=== PATIENT | male | born 1955 | race Caucasian/White ===

== ENCOUNTER 2018-04-19 14:04 | Emergency (ER) | payer BC ==
[2018-04-19 15:11] LABS: Bilirubin Negative (Negative); Blood, Urine Large (Negative); Clarity Cloudy (Clear); Glucose, Urine (Dipstick) Negative (Negative); Leukocyte Negative (Negative); Nitrite Negative (Negative); Protein, Urine (Dipstick) Trace mg/dL (Neg-Trace); Specific Gravity, Urine 1.015 (1.005-1.030); Urobilinogen 0.2 mg/dL (0.2-1.0)
[2018-04-19 15:18] LABS: Bacteria/HPF Rare-Few HPF (None Seen); Crystals/HPF 1+ AMORPH URATES HPF (Negative); RBC/HPF GREATER THAN 50-TNTC HPF (0-3); Squamous Epithelial 0-3 HPF (0-3); WBC/HPF 0-3 HPF (0-3)
[2018-04-19 15:19] LABS: Hyaline Casts/LPF 0-3 HYALINE CAST LPF (0-3 Hyaline); Oval Fat Bodies/HPF Rare HPF (None Seen)
[2018-04-19] MEDS ORDERED: Ondansetron HCl/PF 4 MG/2 ML Vial ONE (15:37)
[2018-04-19] MEDS ORDERED: Ketorolac Tromethamine 30 MG/ML VIAL ONE (15:37)
[2018-04-19 15:52] LABS: Band 2 % (5-11); Hemoglobin 15.7 g/dL (14.0-18.0); Lymphocytes 5 % (21-51); MDiff Complete? YES; Mean Corpuscular HGB CONC 35.7 g/dL (32.0-36.0); Mean Corpuscular Volume 89.7 fl (80.0-94.0); Mean Platelet Volume 8.5 fL (7.4-10.4); Monocytes 6 % (0-10); Neutrophil 81 % (42-75); PLT Morphology Comment Appears Adequate; Platelet Count 282 thou/uL (130-400); RBC Distribution Width 11.5 % (11.5-14.5); Reactive Lymphocytes 5 % (0-10); Red Blood Cell (RBC) Count 4.91 mill/uL (4.70-6.10); White Blood Cell (WBC) Count 14.9 thou/uL (4.8-10.8)
[2018-04-19 15:54] LABS: Anion Gap 16 mmol/L (10-20); BUN (Urea Nitrogen) 16 mg/dL (8.4-25.7); Calc. Creatinine Clearance 0 mL/min (70-130); Calcium 9.2 mg/dL (7.8-10.44); Carbon Dioxide 20 mmol/L (23-31); Chloride 108 mmol/L (98-107); Estimated GFR-MDRD 62; Glucose 102 mg/dL (80-115); Potassium 4.4 mmol/L (3.5-5.1); Sodium 140 mmol/L (136-145)
--- NOTE | 2018-04-19 16:50 | CT ---
ABDOMEN CT WITHOUT CONTRAST: PELVIS CT WITHOUT CONTRAST: HISTORY: Left low back pain. Lower abdominal pain. Difficulty urinating. COMPARISON: None. TECHNIQUE: Abdomen and pelvis CT is performed without IV or oral contrast, utilizing a renal stone protocol. Co deyvi reformatted images are submitted for interpretation. FINDINGS: ABDOMEN: The lung bases are clear. Surgical clips are noted in the GE junction. The visualized davie g parenchyma are unremarkable. The gallbladder is unremarkable. Limited evaluation of the solid organs due to lack of IV contrast. Grossly, no solid organ abnormali ty. Calcified granulomas in the spleen are noted. Mild atrophy of the head and proximal body of the pancreas. No gastrohepatic, retrocrural, or periportal lymphadenopathy. No mesenteric mass, lymphadenopathy, free air, or free fluid. Limited evaluation of the alimentary canal due to lack of oral contrast. No evidence of bowel obstru ction. The ileocecal junction is normal. The appendix is not appreciated. No inflammation of the c ecal apex. Scattered fecal material in a nondistended, nondilated colon. Occasional diverticula. N o diverticulitis. There are punctate nonobstructing calculi in the left and right intrarenal collecting system. The la rgest calculus in the right intrarenal collecting system measures 0.4 cm. The largest calculus in th e left intrarenal collecting system measures 1 to 2 mm. No evidence of right-sided obstructive uropa thy. There is mild left perinephric and periureteral fat stranding. There are no calcifications kranthi ng the course of the left intrarenal and extrarenal collecting system. There is a few millimeter navya culus at the left aspect of the bladder, likely representing a recent passed calculus. PELVIS: Calculus in the left hemibladder. No pelvic mass, adenopathy, free air, or free fluid. No lytic or blastic lesions in the osseous structures. Vacuum disk phenomenon is noted at multiple l evels. IMPRESSION: 1. Mild left-sided obstructive uropathy secondary to recent passed calculus, which is now at the lef t aspect of the bladder. Bilateral nonobstructing urinary calculi are noted. 2. Occasional diverticula of the colon. No diverticulitis. POS: [facility]
== END 2018-04-19 16:05 | disposition home or self-care (01) ==
LOC: SCSER 14:04
DX: N20.0 Calculus of kidney (principal)
CPT/HCPCS: 74176; 80048; 81003; 81015; 85025; 93005; 96374; 96375; J1885; J2405

== ENCOUNTER 2018-06-28 12:59 | Outpatient (CLI) | payer BC ==
[2018-06-28 15:26] LABS: #Basophils 0.2 thou/uL (0.0-0.2); #Eosinphils 0.2 thou/uL (0.0-0.7); #Lymphocytes 4.6 thou/uL (1.20-3.40); #Monocytes 1.1 thou/uL (0.11-0.59); #Neutrophils 4.1 thou/uL (1.40-6.50); %Basophils 1.5 % (0.0-1.0); %Eosinophils 2.3 % (0.0-10.0); %Lymphocytes 45.3 % (21.0-51.0); %Monocytes 10.8 % (0.0-10.0); %Neutrophils 40.1 % (42.0-75.0); Hemoglobin 14.9 g/dL (14.0-18.0); Mean Corpuscular HGB CONC 33.7 g/dL (32.0-36.0); Mean Corpuscular Hemoglobin 31.8 pg (27.0-31.0); Mean Corpuscular Volume 94.4 fL (78.0-98.0); Mean Platelet Volume 7.7 fL (7.4-10.4); Platelet Count 282 thou/uL (130-400); RBC Distribution Width 12.4 % (11.5-14.5); Red Blood Cell (RBC) Count 4.68 mill/uL (4.70-6.10); White Blood Cell (WBC) Count 10.2 thou/uL (4.8-10.8)
[2018-06-28 15:45] LABS: Anion Gap 13 mmol/L (10-20); BUN (Urea Nitrogen) 15 mg/dL (8.4-25.7); Calc. Creatinine Clearance 0 mL/min (70-130); Calcium 9.1 mg/dL (7.8-10.44); Carbon Dioxide 23 mmol/L (23-31); Chloride 107 mmol/L (98-107); Estimated GFR-MDRD 73; Glucose 88 mg/dL (80-115); Potassium 4.1 mmol/L (3.5-5.1); Sodium 139 mmol/L (136-145)
== END 2018-06-28 13:00 | disposition home or self-care (01) ==
LOC: LABBT 12:59
PROVIDERS: ATTEND Urology
DX: Z01.818 Encounter for other preprocedural examination (principal); N20.0 Calculus of kidney
CPT/HCPCS: 74018; 80048; 81001; 85025; 87086; 93005; 93010

== ENCOUNTER 2018-07-06 07:41 | Day surgery (SDC) | payer BC ==
[2018-07-06] MEDS ORDERED: CEFAZOLIN 1 GM VIAL ONE (08:04)
[2018-07-06] MEDS ORDERED: Sodium Chloride 0.9% 100 ML ONE (08:04)
[2018-07-06] MEDS ORDERED: Fentanyl 100 MCG/2 ML VIAL ONE (08:15)
[2018-07-06] MEDS ORDERED: Midazolam HCl 2 mg/2 ml Vial ONE (08:15)
[2018-07-06] MEDS ORDERED: Furosemide 20 MG/2 ML VIAL ONE (09:38)
--- NOTE | 2018-07-06 09:42 | RAD ---
ABDOMEN ONE VIEW: History: Pre op. Comparison: 06-28-18 FINDINGS: Right double J ureteral stent is unchanged in position. Multiple bilateral renal calculi are present. No ureteral calculus is appreciated. IMPRESSION: 1. Multiple bilateral renal calculi. 2. No definite right or left sided ureteral calculus is appreciated. 3. Unchanged right ureteral stent. POS: [facility]
--- NOTE | 2018-07-06 14:10 | OP ---
DATE OF PROCEDURE: 07/06/2018. PREOPERATIVE DIAGNOSIS: Right proximal ureteral and right renal stone. POSTOPERATIVE DIAGNOSIS: Two right renal stones. SURGEON: Kat Ramsay M.D. PROCEDURE: right ESWL, cystoscopy with stent removal ANESTHESIA: General with laryngeal mask airway. PROCEDURE PERFORMED: Right extracorporal shock wave lithotripsy, cystoscopy with removal of stent. FINDINGS: Both stones were now in the renal unit, so it was safe to remove the stent. Adequate fragmentation of 2 stones. DESCRIPTION OF PROCEDURE: The patient was brought to the room by Anesthesia, lying on table in the supine position. After receiving general anesthetic, he was positioned such that the lithotriptor could identify the stone in multiple planes. A total of 2500 shocks were delivered. A 2000 of them to the larger 5- 6 mm stone at a maximum power level of 5/6 at a maximum rate of 70-90 per minute. Then, attention was turned to the smaller 3-4 mm stone where a total of 500 shocks were delivered at a maximum power of 5/6 at a maximum rate of 70- 90 per minute. During this time, he was prepped and with an 18F flexible cystoscope, the indwelling stent was grapsed and removed without difficulty. The patient tolerated the procedure well and was then awakened and transferred to PACU in stable condition. [facility]
[2018-07-06] MEDS ORDERED: Ondansetron HCl/PF 4 MG/2 ML Vial ONE (15:06)
[2018-07-06] MEDS ORDERED: Metoclopramide HCl 10 MG/2 ML VIAL ONE (15:06)
[2018-07-06] MEDS ORDERED: ePHEDrine/0.9% NaCl/PF SYRINGE 50 mg/10 ml ONE (15:06)
[2018-07-06] MEDS ORDERED: PROPOFOL 200 MG/20 ML VIAL ONE (15:06)
[2018-07-06] MEDS ORDERED: Dexamethasone 20 MG/5 ML VIAL ONE (15:06)
[2018-07-06] MEDS ORDERED: diphenhydrAMINE 50 MG/ML VIAL ONE (15:06)
[2018-07-06] MEDS ORDERED: Lidocaine 1% PF 5 ML VIAL ONE (15:06)
== END 2018-07-06 11:49 | disposition home or self-care (01) ==
LOC: SDC 07:41
PROVIDERS: ATTEND Urology
PROC: 0TF3XZZ Fragmentation in Right Kidney Pelvis, External Approach (ICD-10-PCS; principal; 2018-07-06)
DX: N20.0 Calculus of kidney (principal); N40.1 Benign prostatic hyperplasia with lower urinary tract symptoms; R35.0 Frequency of micturition; R35.1 Nocturia; I10 Essential (primary) hypertension; E78.00 Pure hypercholesterolemia, unspecified; E03.9 Hypothyroidism, unspecified; E66.9 Obesity, unspecified; Z68.41 Body mass index [BMI] 40.0-44.9, adult; Z87.442 Personal history of urinary calculi; Z79.82 Long term (current) use of aspirin; Z79.01 Long term (current) use of anticoagulants; Z79.899 Other long term (current) drug therapy; Z91.040 Latex allergy status
CPT/HCPCS: 74018; J0690; J1100; J1200; J1940; J2001; J2250; J2405; J2704; J2765; J3010; J7050

== ENCOUNTER 2018-08-02 13:32 | Outpatient (CLI) | payer BC ==
--- NOTE | 2018-08-02 15:16 | RAD ---
ABDOMEN 1 VIEW: HISTORY: A 63-year-old male with a history of calculus of kidney with calculus of ureter. COMPARISON: 07/06/18. FINDINGS: Multiple bilateral nonobstructing renal calculi. No overt ureteral calculus. The previously noted r ight ureteral stent has been removed. IMPRESSION: Bilateral renal calculi without overt acute obstructing calculus. POS: [facility]
== END 2018-08-02 13:33 | disposition home or self-care (01) ==
LOC: RAD 13:32
PROVIDERS: ATTEND Urology
DX: N20.2 Calculus of kidney with calculus of ureter (principal)
CPT/HCPCS: 74018

== ENCOUNTER 2019-05-17 06:06 | Observation (INO) | payer BC ==
[2019-05-17 06:37] LABS: #Basophils 0.2 thou/uL (0.0-0.2); #Eosinphils 0.2 thou/uL (0.0-0.7); #Lymphocytes 3.8 thou/uL (1.20-3.40); #Neutrophils 3.8 thou/uL (1.40-6.50); %Basophils 1.9 % (0.0-1.0); %Eosinophils 2.4 % (0.0-10.0); %Lymphocytes 41.9 % (21.0-51.0); %Monocytes 11.1 % (0.0-10.0); %Neutrophils 42.6 % (42.0-75.0); Hemoglobin 14.6 g/dL (14.0-18.0); Mean Corpuscular HGB CONC 33.5 g/dL (32.0-36.0); Mean Corpuscular Hemoglobin 32.1 pg (27.0-31.0); Mean Corpuscular Volume 95.8 fL (78.0-98.0); Mean Platelet Volume 7.4 fL (7.4-10.4); Platelet Count 266 thou/uL (130-400); RBC Distribution Width 12.2 % (11.5-14.5); Red Blood Cell (RBC) Count 4.54 mill/uL (4.70-6.10)
[2019-05-17 06:48] LABS: INR-International Normal Ratio 1.1; PTT 33.2 SEC (22.9-36.1); Prothrombin Time 13.9 SEC (12.0-14.7)
[2019-05-17] MEDS ORDERED: Heparin 10,000 UNITS/1 ML VIAL ONE ×2 (06:56→09:42)
[2019-05-17 06:59] LABS: Anion Gap 12 mmol/L (10-20); BUN (Urea Nitrogen) 13 mg/dL (8.4-25.7); Calc. Creatinine Clearance 0 mL/min (70-130); Calcium 8.6 mg/dL (7.8-10.44); Carbon Dioxide 23 mmol/L (23-31); Chloride 108 mmol/L (98-107); Estimated GFR-MDRD 90; Glucose 99 mg/dL (80-115); Sodium 139 mmol/L (136-145)
[2019-05-17] MEDS ORDERED: Fentanyl 100 MCG/2 ML VIAL ONE (08:15)
[2019-05-17] MEDS ORDERED: Heparin 25,000 units/D5W 500 ML ONE (09:42)
[2019-05-17] MEDS ORDERED: Isoproterenol 0.2 MG/1 ML AMP ONE ×2 (09:42)
[2019-05-17] MEDS ORDERED: PROPOFOL 0 ML ONE (10:09)
[2019-05-17] MEDS ORDERED: Protamine Sulfate 50 MG/5 ML VIAL ONE (10:09)
--- NOTE | 2019-05-17 10:47 | OP ---
DATE OF PROCEDURE: 05/17/2019 PROCEDURE PERFORMED: Radiofrequency ablation for atrial fibrillation utilizing 3D electroanatomical mapping drug delivery and intracardiac echocardiogram. PREOPERATIVE DIAGNOSIS: Atrial fibrillation. PROCEDURE IN DETAIL: The patient came to the EP lab in a postabsorptive state. Informed consent was obtained. A time-out was called. The patient was sedated by member of the Anesthesia staff. Once the patient was adequately sedated, the left and right femoral regions as well as the right internal jugular region were prepped and draped in usual sterile fashion. Using a modified Seldinger technique with ultrasound-guided access, access was obtained x2 in the right femoral vein, x1 in the left femoral vein, and x1 in the right internal jugular vein. Sheaths were advanced, and through the left femoral vein sheath, an intracardiac echo catheter was placed in the right atrium for intraprocedural guidance and monitoring. A 20-pole DuoDeca catheter was advanced in the right internal jugular vein and placed to the distal 10 poles into the coronary sinus for left atrial pacing and recording. Following this, transseptal puncture was performed x2 with intracardiac echo guidance. A 20 mm 10-pole circular mapping catheter was placed into the left atrium and a 3 dimensional geometry was made of the left atrium using the Carto system. In addition to this, a radiofrequency ablation catheter, which was a Carto STSF F-curve catheter was placed into the left atrium. Pacing in the left ventricle demonstrated no evidence of accessory pathway. Pacing in the coronary sinus was also performed for left atrial pacing and recording. Radiofrequency ablation was delivered with a target output of 40 grayson. A total of 23 minutes of radiofrequency was delivered around the pulmonary veins resulting in isolation and dissociation of all the 4 pulmonary veins with care to titrate the output on the posterior wall in terms of duration of the lesion, avoiding esophageal areas. The patient after this was given a bolus of isoproterenol, which did not show any evidence of reconnection of the pulmonary veins, and therefore, catheters were withdrawn. Sheaths were withdrawn, and hemostasis was obtained by placement of the Vascade device. The patient tolerated the procedure well, was discharged from the EP lab in stable condition. COMPLICATIONS: None acute. ESTIMATED BLOOD LOSS: Less than 30 mL. POSTOPERATIVE DIAGNOSIS: Atrial fibrillation. CONCLUSIONS: Successful radiofrequency ablation for atrial fibrillation. RECOMMENDATIONS: The patient will be at bedrest and will follow up with Electrophysiology in 6 to 8 weeks. He will be kept overnight in the hospital. Job ID: [id number]
[2019-05-17] MEDS ORDERED: ePHEDrine 50 MG/ML VIAL ONE (11:57)
[2019-05-17] MEDS ORDERED: Rocuronium Bromide 10 MG/ML (10ML VIAL) ONE (11:57)
[2019-05-17] MEDS ORDERED: PROPOFOL 200 MG/20 ML VIAL ONE (11:57)
[2019-05-17] MEDS ORDERED: Glycopyrrolate 0.2 MG/ML 5 ML SYRINGE ONE (11:57)
[2019-05-17] MEDS ORDERED: Ondansetron PF 4 MG/2 ML Vial ONE (11:57)
[2019-05-17 15:02] VITALS: BMI 41.6
[2019-05-17] MEDS ORDERED: Fluticasone Propionate Nasal Spray 16 gm Bottle NASAL PRN (15:11)
[2019-05-17] MEDS: Sucralfate 1 GM TAB PO SCH ×2 (18:17→20:54)
[2019-05-17] MEDS: Acetaminophen 325 MG TAB PO PRN (19:58)
[2019-05-17] MEDS: Dronedarone HCl 400 MG TAB PO SCH (20:53)
[2019-05-17] MEDS: Apixaban 5 MG TAB PO SCH (20:53)
[2019-05-17] MEDS: Carvedilol 25 MG TAB PO SCH (20:54)
[2019-05-17] MEDS ORDERED: Atorvastatin Calcium 40 MG TAB PO SCH (21:00)
[2019-05-18] MEDS: Acetaminophen 325 MG TAB PO PRN (04:04)
[2019-05-18] MEDS ORDERED: Levothyroxine Sodium 125 MCG TAB PO SCH (06:00)
[2019-05-18] MEDS: Apixaban 5 MG TAB PO SCH (08:44)
[2019-05-18] MEDS: Sucralfate 1 GM TAB PO SCH (08:44)
[2019-05-18] MEDS: Dronedarone HCl 400 MG TAB PO SCH (08:44)
[2019-05-18] MEDS: Carvedilol 25 MG TAB PO SCH (08:45)
[2019-05-18] MEDS ORDERED: Ubidecarenone 50 MG CAP PO SCH (09:00)
[2019-05-18] MEDS ORDERED: Aspirin 81 mg Enteric Coated Tablet PO SCH (09:00)
[2019-05-18] MEDS ORDERED: BUPROPION PO SCH (09:00)
[2019-05-18] MEDS ORDERED: Tamsulosin HCl 0.4 MG CAP PO SCH (09:00)
[2019-05-18] MEDS ORDERED: Multivitamin W/ Minerals 1 TAB PO SCH (09:00)
[2019-05-18] MEDS ORDERED: NALTREXONE PO SCH (09:00)
[2019-05-18] MEDS ORDERED: Fish Oil 1,000 MG CAP PO SCH (09:00)
[2019-05-18] MEDS ORDERED: Stress 600 With Zinc 1 TAB PO SCH (09:00)
[2019-05-18] MEDS ORDERED: Metamucil PACK PO SCH (09:00)
[2019-05-18 12:08] VITALS: BP 129/70; TEMP 97.9
--- NOTE | 2019-05-18 14:16 | DIS ---
DATE OF ADMISSION: 05/17/2019 DATE OF DISCHARGE: 05/18/2019 DIAGNOSIS: Paroxysmal atrial fibrillation. PROCEDURES PERFORMED: Include electrophysiology study with 3-dimensional mapping and ablation for atrial fibrillation. Complications, none. Total of 23 minutes RF energy lesions were delivered. Successful isolation of 4 pulmonary veins as well as ablation of the posterior wall. HOSPITAL COURSE: Mr. Franklin is a pleasant 64-year-old gentleman with a history of paroxysmal atrial fibrillation, which he was symptomatic and refractory to medical therapy. He was admitted for an elective outpatient atrial fibrillation ablation, which was performed on 05/17/2019, with Dr. Sethi. He has done well following his ablation without any complications or instability. Mr. Franklin feels well today. He denies any heart racing, palpitations, chest pain or pressure, syncope, near syncope, stroke, stroke-like symptoms, shortness of breath, nausea, vomiting, diarrhea, bleeding at the groin sites, or difficulty urinating. He does not have any medical concerns today and is eager to discharge home. REVIEW OF SYSTEMS: Eight-point review of systems is negative and as per HPI. PHYSICAL EXAMINATION: VITAL SIGNS: Temperature 97.9, pulse 76, blood pressure 129/70, respirations 16, oxygenation is 94% on room air. GENERAL: The patient is alert and oriented. Speech is clear. Affect is appropriate. NECK: Supple without jugular venous distention. LUNGS: Clear to auscultation bilaterally. HEART: Heart rate is regularly regular with crisp S1 and S2. PMI is nondisplaced. ABDOMEN: Obese, soft, and nontender without palpable masses. Hepatojugular reflex is negative. EXTREMITIES: Warm and dry to touch. Well perfused without clubbing, cyanosis, or edema. Bilateral groin sites are soft to palpation without any obvious signs of bleeding or hematoma formation. NEUROLOGIC: Nonfocal. LABORATORY DATA: Telemetry and EKGs were reviewed and reflect normal sinus rhythm with occasional PVCs. No atrial arrhythmias are seen postablation thus far. DISCHARGE INSTRUCTIONS: No lifting more than 10 pounds for 7 days[address] No driving for at least 2 days, but until any residual groin pain has resolved. No soaking baths for 7 days. May return to work in 2 weeks, and a work excuse note has been provided. Take medications as prescribed. Follow up appointment as scheduled in the patient's discharge paper work. Contact [facility] with any postablation questions. DISCHARGE MEDICATIONS: Resuming home medications of: 1. Sertraline 50 mg daily. 2. Vitamin E 400 units daily. 3. Eliquis 5 mg b.i.d. 4. Flomax 0.4 mg daily. 5. Fiber daily. 6. Kneeland-3 daily. 7. Coreg 25 mg p.o. b.i.d. 8. Atorvastatin 40 mg daily. 9. Aspirin 81 mg daily. 10. Levothyroxine 125 mcg daily. 11. Vitamin D of 2000 units daily. 12. Vitamin B of 1 capsule daily. 13. CoQ10 daily. 14. Multivitamin daily. 15. Nasacort as needed. 16. Nitroglycerin sublingual as needed. New prescriptions provided: 1. Carafate 1 g p.o. q.i.d. x2 weeks. 2. Potassium chloride 20 mEq daily, to be taken with Lasix as needed. 3. Lasix 40 mg daily as needed for shortness of breath, weight gain, or swelling of the extremities postablation. 4. Protonix 40 daily x30 days. Discontinued medications: Multaq. CONDITION AT DISCHARGE: Stable. Job ID: [id number]
== END 2019-05-18 13:57 | disposition home or self-care (01) ==
LOC: CCL 06:06 → 2SW 14:26
PROVIDERS: ADMIT Specialist; ATTEND Specialist
PROC: 4A023FZ Measurement of Cardiac Rhythm, Percutaneous Approach (ICD-10-PCS; principal; 2019-05-18)
PROC: 4A0234Z Measurement of Cardiac Electrical Activity, Percutaneous Approach (ICD-10-PCS; 2019-05-18)
PROC: 02583ZZ Destruction of Conduction Mechanism, Percutaneous Approach (ICD-10-PCS; 2019-05-18)
PROC: 02K83ZZ Map Conduction Mechanism, Percutaneous Approach (ICD-10-PCS; 2019-05-18)
DX: I48.0 Paroxysmal atrial fibrillation (principal); I25.10 Atherosclerotic heart disease of native coronary artery without angina pectoris; E78.5 Hyperlipidemia, unspecified; E03.9 Hypothyroidism, unspecified; G47.30 Sleep apnea, unspecified; I48.92 Unspecified atrial flutter; Z79.01 Long term (current) use of anticoagulants; Z79.82 Long term (current) use of aspirin; Z79.899 Other long term (current) drug therapy; Z91.040 Latex allergy status; Z95.5 Presence of coronary angioplasty implant and graft; Z98.890 Other specified postprocedural states
CPT/HCPCS: 36415; 76942; 80048; 85025; 85347; 85610; 85730; 93005; 93010; 93613; 93622; 93623; 93656; 93662; C1731; C1759; C1769; G0378; J1644; J2405; J2704; J2720; J3010; J3490

== ENCOUNTER 2020-11-29 13:31 | Outpatient (CLI) | payer OTHER ==
--- NOTE | 2020-11-29 13:50 | ULT ---
ULTRASOUND RETROPERITONEUM COMPLETE: (RENAL) DATE: 11/29/2020 HISTORY: 65-year-old male with chronic kidney disease and nephrolithiasis ("calculus of kidney and ") FINDINGS: The right kidney measures 11.5 x 6 x 6.5 cm The left kidney measures 11 x 5.5 x 5 cm. Both kidneys have normal parenchymal echogenicity. There is no hydronephrosis. No moderate sized or large renal cystic or solid renal lesion is identified. There are several tiny hyperechoic shadowing foci in the bilateral calyces, a few millimeters in size each. Cursory images of the urinary bladder demonstrate no gross abnormality. IMPRESSION: 1) nephrolithiasis consisting of several few tiny bilateral renal calculi. 2) no hydronephrosis
== END 2020-11-29 13:32 | disposition home or self-care (01) ==
LOC: BICULT 13:31
PROVIDERS: ATTEND Internal Medicine Nephrology
DX: N18.9 Chronic kidney disease, unspecified (principal); N20.0 Calculus of kidney
CPT/HCPCS: 76770

== ENCOUNTER 2023-10-06 09:12 | Outpatient (CLI) | payer MEDICARE ==
[2023-10-06 10:40] LABS: Hematocrit 52.6 % (38.8-50.0); Hemoglobin 16.4 g/dL (13.5-17.5); Mean Corpuscular HGB CONC 31.2 g/dL (32.0-36.0); Mean Corpuscular Hemoglobin 25.8 pg (27.0-33.0); Mean Corpuscular Volume 82.8 fl (81.2-95.1); Mean Platelet Volume 9.8 fl (7.4-10.4); Platelet Count 386 10x3/uL (150-450); RBC Distribution Width 18.8 % (11.5-14.5); Red Blood Cell (RBC) Count 6.35 10x6/uL (4.32-5.72); White Blood Cell (WBC) Count 12.4 10x3/uL (3.5-10.5)
[2023-10-06 11:08] LABS: Anion Gap 14 mmol/L (10-20); BUN (Urea Nitrogen) 12 mg/dL (8.4-25.7); Calc. Creatinine Clearance 0 mL/min (70-130); Calcium 9.3 mg/dL (7.8-10.44); Carbon Dioxide 22 mmol/L (23-31); Chloride 107 mmol/L (98-107); Estimated GFR 72; Glucose 138 mg/dL (80-115); Potassium 4.7 mmol/L (3.5-5.1); Sodium 138 mmol/L (136-145)
== END 2023-10-06 09:13 | disposition home or self-care (01) ==
LOC: LABBT 09:12
PROVIDERS: ATTEND Specialist
DX: Z01.818 Encounter for other preprocedural examination (principal); J35.1 Hypertrophy of tonsils; K13.79 Other lesions of oral mucosa; J34.2 Deviated nasal septum; G47.33 Obstructive sleep apnea (adult) (pediatric)
CPT/HCPCS: 80048; 85027; 93005; 93010

== ENCOUNTER 2023-10-08 10:08 | Day surgery (SDC) | payer MEDICARE ==
[2023-10-06 09:44] VITALS: BMI 39.9
[2023-10-08] MEDS ORDERED: fentaNYL PF 100 MCG/2 ML SYRINGE ONE (12:30)
[2023-10-08] MEDS ORDERED: PROPOFOL 40 ML ONE (12:30)
[2023-10-08] MEDS ORDERED: Oxymetazoline HCl 0.05% (30 ML BOT) ONE (12:43)
[2023-10-08] MEDS ORDERED: EPINEPHrine 1 MG/ML VIAL ONE (12:45)
[2023-10-08] MEDS ORDERED: Lidocaine 1% (PF) 30 ML VIAL ONE (12:46)
[2023-10-08] MEDS ORDERED: Bacitracin Zinc Ointment 30 gm TUBE ONE (12:46)
[2023-10-08] MEDS ORDERED: Ferric Subsulfate 8 ML TOPICAL SOLN ONE (12:46)
[2023-10-08] MEDS ORDERED: SUGAMMADEX SODIUM 200 MG/2 ML VIAL ONE (13:14)
[2023-10-08] MEDS ORDERED: PHENYLEPHRINE-NS 100 MCG/ML 10 ML SYRINGE ONE (13:34)
[2023-10-08] MEDS ORDERED: Esmolol 100 MG/10 ML VIAL ONE ×2 (13:34→13:47)
[2023-10-08] MEDS ORDERED: PROPOFOL 200 MG/20 ML VIAL ONE (13:34)
[2023-10-08] MEDS ORDERED: Dexamethasone 20 MG/5 ML VIAL ONE (13:34)
[2023-10-08] MEDS ORDERED: Glycopyrrolate 0.2 MG/ML 5 ML SYRINGE ONE (13:34)
[2023-10-08] MEDS ORDERED: Rocuronium Bromide 10 MG/ML (10ML VIAL) ONE (13:34)
[2023-10-08] MEDS ORDERED: Ondansetron PF 4 MG/2 ML Vial ONE (13:34)
[2023-10-08] MEDS ORDERED: ePHEDrine Sulfate 50 MG/10 ML VIAL ONE (13:45)
[2023-10-08] MEDS ORDERED: fentaNYL 50 mcg/mL 1 mL Vial ONE (14:57)
[2023-10-08] MEDS ORDERED: Hydrocodone-Acetamin 15 ML UDCUP ONE (16:04)
== END 2023-10-08 18:20 | disposition home or self-care (01) ==
LOC: SDC 10:08
PROVIDERS: ATTEND Specialist
PROC: 09RM07Z Replacement of Nasal Septum with Autologous Tissue Substitute, Open Approach (ICD-10-PCS; principal; 2023-10-08)
PROC: 0CTPXZZ Resection of Tonsils, External Approach (ICD-10-PCS; 2023-10-08)
PROC: 0CB30ZZ Excision of Soft Palate, Open Approach (ICD-10-PCS; 2023-10-08)
DX: J35.1 Hypertrophy of tonsils (principal); K13.79 Other lesions of oral mucosa; J34.2 Deviated nasal septum; G47.33 Obstructive sleep apnea (adult) (pediatric)
CPT/HCPCS: 88304; J0171; J1100; J2001; J2405; J2704; J3010

== ENCOUNTER 2023-10-10 02:30 | Emergency (ER) | payer MEDICARE | END 2023-10-10 03:29 | disposition home or self-care (01) | LOC: ERS 02:30 | DX: R10.9 Unspecified abdominal pain (principal); T39.1X5A Adverse effect of 4-Aminophenol derivatives, initial encounter; T40.2X5A Adverse effect of other opioids, initial encounter; I10 Essential (primary) hypertension ==

== ENCOUNTER 2023-10-10 16:36 | Inpatient (IN) | payer MEDICARE ==
[2023-10-10] MEDS ORDERED: Cefepime 2 GM VIAL ONE (17:01)
[2023-10-10] MEDS ORDERED: Sodium Chloride 0.9% 100 ML ONE (17:01)
[2023-10-10 17:28] LABS: #Basophils 0.1 thou/uL (0.0-0.2); #Monocytes 2.1 thou/uL (0.11-0.59); #Neutrophils 13.6 thou/uL (1.40-6.50); %Basophils 0.3 % (0.0-1.0); %Eosinophils 0.2 % (0.0-10.0); %Lymphocytes 19.6 % (21.0-51.0); %Monocytes 10.5 % (0.0-10.0); Hematocrit 52.2 % (42.0-52.0); Hemoglobin 16.4 g/dL (14.0-18.0); Mean Corpuscular HGB CONC 31.4 g/dL (32.0-36.0); Mean Corpuscular Hemoglobin 26.4 pg (27.0-31.0); Mean Corpuscular Volume 83.9 fl (78.0-98.0); Platelet Count 366 10x3/uL (130-400); Red Blood Cell (RBC) Count 6.22 mill/uL (4.70-6.10); White Blood Cell (WBC) Count 19.6 10x3/uL (4.8-10.8)
[2023-10-10 17:51] LABS: ALT (SGPT) 21 U/L (8-55); AST (SGOT) 32 U/L (5-34); Albumin 4.3 g/dL (3.4-4.8); Alkaline Phosphatase 86 U/L (40-110); Anion Gap 16 mmol/L (10-20); BUN (Urea Nitrogen) 16 mg/dL (8.4-25.7); Bilirubin, Total 1.2 mg/dL (0.2-1.2); Calc. Creatinine Clearance 0 mL/min (70-130); Calcium 9.2 mg/dL (7.8-10.44); Carbon Dioxide 24 mmol/L (23-31); Chloride 104 mmol/L (98-107); Estimated GFR 66; Globulin 2.9 g/dL (2.4-3.5); Glucose 129 mg/dL (80-115); Protein, Total 7.2 g/dL (5.8-8.1); Sodium 140 mmol/L (136-145)
[2023-10-10] MEDS ORDERED: Dexamethasone 10 MG/ML VIAL ONE (17:58)
[2023-10-10 18:10] LABS: Prothrombin Time 13.7 sec (12.0-14.7)
[2023-10-10 18:11] LABS: PTT 29.3 sec (22.9-36.1)
[2023-10-10] MEDS ORDERED: Dexamethasone 20 MG in Sodium Chloride 0.9% 50 ML IVPB SCH (18:15)
[2023-10-10] MEDS ORDERED: Dexamethasone Sod Phosphate 20 MG in Sodium Chloride 0.9% 50 ML IVPB SCH (18:45)
[2023-10-10 19:56] LABS: Bacteria/HPF None Seen HPF (None Seen); Bilirubin Negative (Negative); Blood, Urine Negative (Negative); CAUTI Indications for Culture Dysuria,urgency,freq; Clarity Clear (Clear); Glucose, Urine (Dipstick) Normal (Negative); Ketone, Urine 10 mg/dL (Negative); Leukocyte Negative Leu/uL (Negative); Nitrite Negative (Negative); Protein, Urine (Dipstick) 30 mg/dL (Neg-Trace); RBC/HPF 0-3 HPF (0-3); Specific Gravity, Urine 1.028 (1.002-1.036); Squamous Epithelial None Seen HPF (0-3); Urobilinogen Normal mg/dL (Less than 2); WBC/HPF 0-3 HPF (0-3); pH, Urine 5.5 (5.0-9.0)
[2023-10-10 19:57] LABS: Urine Culture Reflex No No
[2023-10-10] MEDS ORDERED: Ondansetron ODT 4 MG TAB SL PRN (20:30)
[2023-10-10] MEDS ORDERED: Acetaminophen 325 MG TAB PO PRN (20:30)
[2023-10-10] MEDS ORDERED: Ondansetron PF 4 MG/2 ML Vial IVP PRN (20:30)
[2023-10-10] MEDS ORDERED: Ipratropium/Albuterol 3 ML NEB NEB PRN (21:07)
[2023-10-10 21:10] VITALS: BMI 39.1
[2023-10-10] MEDS ORDERED: Electrolyte Replacement Protocol 1 EACH FS PRN (21:11)
[2023-10-10] MEDS ORDERED: D5 1/2 NS w/20 mEq KCL 1,000 ML IV SCH (21:15)
[2023-10-11 04:37] LABS: #Monocytes 0.6 thou/uL (0.11-0.59); #Neutrophils 9.1 thou/uL (1.40-6.50); %Basophils 0.2 % (0.0-1.0); %Lymphocytes 13.1 % (21.0-51.0); %Monocytes 5.1 % (0.0-10.0); %Neutrophils 81.2 % (42.0-75.0); Hematocrit 50.4 % (42.0-52.0); Hemoglobin 15.4 g/dL (14.0-18.0); Mean Corpuscular HGB CONC 30.6 g/dL (32.0-36.0); Mean Corpuscular Hemoglobin 26.1 pg (27.0-31.0); Mean Corpuscular Volume 85.3 fl (78.0-98.0); Mean Platelet Volume 9.6 fL (7.4-10.4); Platelet Count 302 10x3/uL (130-400); RBC Distribution Width 18.8 % (11.5-14.5); Red Blood Cell (RBC) Count 5.91 mill/uL (4.70-6.10); White Blood Cell (WBC) Count 11.2 10x3/uL (4.8-10.8)
[2023-10-11 05:01] LABS: Anion Gap 13 mmol/L (10-20); BUN (Urea Nitrogen) 15 mg/dL (8.4-25.7); Calc. Creatinine Clearance 118 mL/min (70-130); Calcium 8.7 mg/dL (7.8-10.44); Carbon Dioxide 26 mmol/L (23-31); Chloride 106 mmol/L (98-107); Estimated GFR 76; Glucose 178 mg/dL (80-115); Potassium 5.2 mmol/L (3.5-5.1); Sodium 140 mmol/L (136-145)
[2023-10-11] MEDS ORDERED: Cefepime 1 GM in Sodium Chloride 0.9% 100 ML IVPB SCH (06:00)
[2023-10-11] MEDS ORDERED: Magnesium 2 GM/50 ML(in water) 2 GM in Premix 1 BAG IVPB SCH (08:00)
[2023-10-11] MEDS ORDERED: Cholecalciferol 1,000 UNITS (25 MCG) TAB PO SCH (09:00)
[2023-10-11] MEDS ORDERED: Aspirin Chewable 81 MG TAB PO SCH (09:00)
[2023-10-11] MEDS ORDERED: ARGININE 500 MG PO SCH (09:00)
[2023-10-11] MEDS ORDERED: Famotidine/PF 20 mg/2ml Vial SLOW IVP SCH (09:00)
[2023-10-11] MEDS ORDERED: FLU VACC QS2023(65UP)/MF59C/PF 60 MCG/0.5 ML SYRINGE IM ONE (09:00)
[2023-10-11] MEDS ORDERED: Famotidine 20 MG TAB PO SCH (09:00)
[2023-10-11] MEDS ORDERED: Rosuvastatin 20 MG TAB PO SCH (09:00)
[2023-10-11] MEDS ORDERED: Dexamethasone 20 MG in Sodium Chloride 0.9% 50 ML IVPB SCH (14:00)
[2023-10-11] MEDS ORDERED: metFORMIN 500 MG TAB PO SCH (17:00)
[2023-10-11 17:37] VITALS: BP 139/68; TEMP 97.8
[2023-10-11] MEDS ORDERED: Cefepime 2 GM in Sodium Chloride 0.9% 100 ML IVPB SCH (18:00)
== END 2023-10-11 17:33 | disposition home or self-care (01) | DRG 391 ==
LOC: ERS 16:36 → 2NO 20:05
PROVIDERS: ADMIT Student in an Organized Health Care Education/Training Program; ATTEND Student in an Organized Health Care Education/Training Program
PROC: 3E033XZ Introduction of Vasopressor into Peripheral Vein, Percutaneous Approach (ICD-10-PCS; 2023-10-08)
PROC: 3E03329 Introduction of Other Anti-infective into Peripheral Vein, Percutaneous Approach (ICD-10-PCS; principal; 2023-10-11)
DX: K59.00 Constipation, unspecified (principal); J69.0 Pneumonitis due to inhalation of food and vomit; J96.01 Acute respiratory failure with hypoxia; J95.830 Postprocedural hemorrhage of a respiratory system organ or structure following a respiratory system procedure; R65.10 Systemic inflammatory response syndrome (SIRS) of non-infectious origin without acute organ dysfunction; R04.0 Epistaxis; Z79.899 Other long term (current) drug therapy; Z91.040 Latex allergy status; Z79.84 Long term (current) use of oral hypoglycemic drugs; I48.91 Unspecified atrial fibrillation; I10 Essential (primary) hypertension; Z90.49 Acquired absence of other specified parts of digestive tract; Z90.89 Acquired absence of other organs; I25.10 Atherosclerotic heart disease of native coronary artery without angina pectoris; Z96.653 Presence of artificial knee joint, bilateral; Y83.8 Other surgical procedures as the cause of abnormal reaction of the patient, or of later complication, without mention of misadventure at the time of the procedure
CPT/HCPCS: 36415; 36416; 71045; 71275; 80048; 80053; 81001; 83605; 83735; 85025; 85610; 85730; 87040; 87086; 88304; 93005; 93306; 94760; 96365; 96366; 96367; J0171; J0692; J1100; J2001; J2405; J2704; J3010; J3475; J3480; J3490; S0028

== ENCOUNTER 2024-11-25 14:06 | Outpatient (CLI) | payer MEDICARE | END 2024-11-25 14:07 | disposition home or self-care (01) | LOC: BICMRI 14:06 | PROVIDERS: ATTEND Orthopaedic Surgery | DX: M25.551 Pain in right hip (principal) ==

== ENCOUNTER 2025-09-19 00:59 | Emergency (ER) | payer MEDICARE ==
[2025-09-19] MEDS ORDERED: HYDROcodone/Acetaminophen 5/325 mg Tablet ONE (01:48)
[2025-09-19] MEDS ORDERED: Ketorolac Tromethamine 30 MG (1 mL) VIAL ONE (01:48)
== END 2025-09-19 02:44 | disposition home or self-care (01) ==
LOC: ERS 00:59
DX: K08.89 Other specified disorders of teeth and supporting structures (principal)
CPT/HCPCS: J1885

== ENCOUNTER 2025-09-21 10:24 | Inpatient (IN) | payer MEDICARE ==
[2025-09-21] MEDS ORDERED: Ketorolac Tromethamine 30 MG (1 mL) VIAL ONE ×2 (10:44→18:09)
[2025-09-21] MEDS ORDERED: cefTRIAXone (ROCEPHIN) 2 GM VIAL ONE (10:58)
[2025-09-21 11:19] LABS: #Basophils 0.07 10x3/uL (0.0-0.2); #Eosinophils 0.05 10x3/uL (0.0-0.7); #Monocytes 2.20 10x3/uL (0.11-0.59); #Neutrophils 14.82 10x3/uL (1.40-6.50); %Basophils 0.4 % (0.0-1.0); %Eosinophils 0.3 % (0.0-10.0); %Lymphocytes 12.7 % (21.0-51.0); %Monocytes 11.1 % (0.0-10.0); %Neutrophils 74.8 % (42.0-75.0); Hematocrit 53.0 % (42.0-52.0); Hemoglobin 16.4 g/dL (14.0-18.0); Mean Corpuscular Hemoglobin 25.4 pg (27.0-31.0); Mean Corpuscular Volume 82.2 fL (78.0-98.0); Platelet Count 354 10x3/uL (130-400); Red Blood Cell (RBC) Count 6.45 mill/uL (4.70-6.10); White Blood Cell (WBC) Count 19.80 10x3/uL (4.8-10.8)
[2025-09-21 11:22] LABS: ALT (SGPT) 16 U/L (Less than 45); AST (SGOT) 19 U/L (11-34); Albumin 4.0 g/dL (3.1-4.5); Alkaline Phosphatase 100 U/L (40-110); Anion Gap 14 mmol/L (10-20); BUN (Urea Nitrogen) 8 mg/dL (8.4-25.7); Bilirubin, Total 0.8 mg/dL (0.3-1.2); Calc. Creatinine Clearance 0 mL/min (70-130); Calcium 9.7 mg/dL (7.8-10.44); Carbon Dioxide 26 mmol/L (23-31); Chloride 102 mmol/L (98-107); Globulin 3.6 g/dL (2.4-3.5); Glucose 111 mg/dL (80-115); Potassium 4.1 mmol/L (3.5-5.1); Sodium 138 mmol/L (136-145)
[2025-09-21] MEDS ORDERED: Iopamidol-370 76% 500 ML MDV (1 ML CHARGE) ONE (14:33)
[2025-09-21] MEDS ORDERED: Ondansetron PF 4 MG/2 ML Vial IVP PRN (14:55)
[2025-09-21 15:16] VITALS: BMI 36.4
[2025-09-21] MEDS ORDERED: Chlorhexidine Gluconate 15 ML UDCUP SSP ONE (16:45)
[2025-09-21] MEDS ORDERED: Lidocaine 1% w/Epinephrine 1:100K 20 ML VIAL ONE (16:46)
[2025-09-21] MEDS ORDERED: Oxymetazoline HCl 0.05% (30 ML BOT) ONE (17:59)
[2025-09-21] MEDS ORDERED: fentaNYL PF 100 MCG/2 ML SYRINGE ONE (18:03)
[2025-09-21] MEDS ORDERED: Lidocaine 1% PF 5 ML VIAL ONE (18:03)
[2025-09-21] MEDS ORDERED: SUCCINYLCHOLINE/SOD CL,ISO/PF 200 MG/10 ML SYRINGE FS ONE (18:03)
[2025-09-21] MEDS ORDERED: Ondansetron PF 4 MG/2 ML Vial ONE (18:09)
[2025-09-21] MEDS ORDERED: PROPOFOL 200 MG/20 ML VIAL ONE (18:18)
[2025-09-22 04:33] LABS: #Basophils 0.03 10x3/uL (0.0-0.2); #Eosinophils Less than 0.03 10x3/uL (0.0-0.7); #Monocytes 1.24 10x3/uL (0.11-0.59); #Neutrophils 17.10 10x3/uL (1.40-6.50); %Basophils 0.1 % (0.0-1.0); %Eosinophils 0.0 % (0.0-10.0); %Lymphocytes 8.4 % (21.0-51.0); %Monocytes 6.1 % (0.0-10.0); %Neutrophils 84.6 % (42.0-75.0); Hematocrit 48.2 % (42.0-52.0); Hemoglobin 14.4 g/dL (14.0-18.0); Mean Corpuscular Hemoglobin 24.7 pg (27.0-31.0); Mean Corpuscular Volume 82.5 fL (78.0-98.0); Platelet Count 369 10x3/uL (130-400); Red Blood Cell (RBC) Count 5.84 mill/uL (4.70-6.10); White Blood Cell (WBC) Count 20.24 10x3/uL (4.8-10.8)
[2025-09-22 05:13] LABS: Anion Gap 17 mmol/L (10-20); BUN (Urea Nitrogen) 10 mg/dL (8.4-25.7); Calc. Creatinine Clearance 107 mL/min (70-130); Calcium 9.0 mg/dL (7.8-10.44); Carbon Dioxide 24 mmol/L (23-31); Chloride 104 mmol/L (98-107); Glucose 181 mg/dL (80-115); Potassium 4.6 mmol/L (3.5-5.1); Sodium 140 mmol/L (136-145)
[2025-09-22] MEDS: Clindamycin/D5W 900 MG in Premix 1 BAG IVPB SCH (14:19)
[2025-09-22] MEDS: Chlorhexidine Gluconate 15 ML UDCUP SSP SCH (16:53)
[2025-09-22] MEDS: Acetaminophen 325 MG TAB PO PRN (16:54)
[2025-09-22] MEDS: Metoprolol Succinate XL 50 MG ER.TAB PO SCH (20:04)
[2025-09-23 04:56] LABS: #Basophils 0.05 10x3/uL (0.0-0.2); #Eosinophils 0.04 10x3/uL (0.0-0.7); #Monocytes 1.61 10x3/uL (0.11-0.59); #Neutrophils 16.09 10x3/uL (1.40-6.50); %Basophils 0.2 % (0.0-1.0); %Eosinophils 0.2 % (0.0-10.0); %Lymphocytes 14.0 % (21.0-51.0); %Monocytes 7.7 % (0.0-10.0); %Neutrophils 77.2 % (42.0-75.0); Hematocrit 46.3 % (42.0-52.0); Hemoglobin 14.4 g/dL (14.0-18.0); Mean Corpuscular Hemoglobin 25.4 pg (27.0-31.0); Mean Corpuscular Volume 81.7 fL (78.0-98.0); Platelet Count 342 10x3/uL (130-400); Red Blood Cell (RBC) Count 5.67 mill/uL (4.70-6.10); White Blood Cell (WBC) Count 20.86 10x3/uL (4.8-10.8)
[2025-09-23 05:13] LABS: Anion Gap 14 mmol/L (10-20); BUN (Urea Nitrogen) 16 mg/dL (8.4-25.7); Calc. Creatinine Clearance 107 mL/min (70-130); Calcium 8.7 mg/dL (7.8-10.44); Carbon Dioxide 25 mmol/L (23-31); Chloride 106 mmol/L (98-107); Glucose 128 mg/dL (80-115); Potassium 4.2 mmol/L (3.5-5.1); Sodium 141 mmol/L (136-145)
[2025-09-23] MEDS: Ezetimibe 10 MG TAB PO SCH (09:17)
[2025-09-23] MEDS: Metoprolol Succinate XL 25 MG ER.TAB PO SCH (09:17)
[2025-09-23] MEDS ORDERED: Pantoprazole 40 MG DR.TAB PO SCH (13:42)
[2025-09-23] MEDS: Pantoprazole 40 MG DR.TAB PO SCH (15:26)
[2025-09-23] MEDS: Ketorolac Tromethamine 30 MG (1 mL) VIAL IVP SCH (16:05)
[2025-09-23] MEDS ORDERED: Ketorolac Tromethamine 30 MG (1 mL) VIAL IVP SCH (18:00)
[2025-09-24 05:02] LABS: #Basophils 0.09 10x3/uL (0.0-0.2); #Eosinophils 0.16 10x3/uL (0.0-0.7); #Monocytes 1.74 10x3/uL (0.11-0.59); #Neutrophils 10.41 10x3/uL (1.40-6.50); %Basophils 0.6 % (0.0-1.0); %Eosinophils 1.0 % (0.0-10.0); %Lymphocytes 21.2 % (21.0-51.0); %Monocytes 10.9 % (0.0-10.0); %Neutrophils 65.4 % (42.0-75.0); Hematocrit 46.4 % (42.0-52.0); Hemoglobin 14.2 g/dL (14.0-18.0); Mean Corpuscular Hemoglobin 24.9 pg (27.0-31.0); Mean Corpuscular Volume 81.3 fL (78.0-98.0); Platelet Count 350 10x3/uL (130-400); Red Blood Cell (RBC) Count 5.71 mill/uL (4.70-6.10); White Blood Cell (WBC) Count 15.92 10x3/uL (4.8-10.8)
[2025-09-24 05:36] LABS: Anion Gap 13 mmol/L (10-20); BUN (Urea Nitrogen) 17 mg/dL (8.4-25.7); Calc. Creatinine Clearance 112 mL/min (70-130); Calcium 8.4 mg/dL (7.8-10.44); Carbon Dioxide 24 mmol/L (23-31); Chloride 104 mmol/L (98-107); Glucose 92 mg/dL (80-115); Potassium 3.9 mmol/L (3.5-5.1); Sodium 137 mmol/L (136-145)
[2025-09-24] MEDS: Pantoprazole 40 MG DR.TAB PO SCH (09:21)
[2025-09-24] MEDS ORDERED: Iopamidol-370 76% 500 ML MDV (1 ML CHARGE) ONE (12:45)
[2025-09-24] MEDS: PNEUMOC 20-VAL CONJ-DIP CRM/PF 0.5 ML SYRINGE IM ONE (18:00)
[2025-09-25 05:03] LABS: #Basophils 0.06 10x3/uL (0.0-0.2); #Eosinophils 0.10 10x3/uL (0.0-0.7); #Monocytes 1.41 10x3/uL (0.11-0.59); #Neutrophils 8.57 10x3/uL (1.40-6.50); %Basophils 0.4 % (0.0-1.0); %Eosinophils 0.7 % (0.0-10.0); %Lymphocytes 28.2 % (21.0-51.0); %Monocytes 9.8 % (0.0-10.0); %Neutrophils 59.6 % (42.0-75.0); Hematocrit 47.1 % (42.0-52.0); Hemoglobin 14.1 g/dL (14.0-18.0); Mean Corpuscular Hemoglobin 24.6 pg (27.0-31.0); Mean Corpuscular Volume 82.2 fL (78.0-98.0); Platelet Count 379 10x3/uL (130-400); Red Blood Cell (RBC) Count 5.73 mill/uL (4.70-6.10); White Blood Cell (WBC) Count 14.38 10x3/uL (4.8-10.8)
[2025-09-25 05:29] LABS: Anion Gap 14 mmol/L (10-20); BUN (Urea Nitrogen) 20 mg/dL (8.4-25.7); Calc. Creatinine Clearance 103 mL/min (70-130); Calcium 8.8 mg/dL (7.8-10.44); Carbon Dioxide 25 mmol/L (23-31); Chloride 108 mmol/L (98-107); Glucose 110 mg/dL (80-115); Potassium 4.5 mmol/L (3.5-5.1); Sodium 142 mmol/L (136-145)
[2025-09-25] MEDS: Ketorolac Tromethamine 30 MG (1 mL) VIAL IVP SCH (11:42)
[2025-09-25] MEDS: hydrALAZINE 20 MG/ML VIAL SLOW IVP PRN (11:48)
[2025-09-25] MEDS ORDERED: HYDROcodone/Acetaminophen 5/325 mg Tablet PO PRN (11:48)
[2025-09-25] MEDS: Bacitracin 1 PK TOP SCH (15:27)
[2025-09-26 04:37] LABS: #Basophils 0.10 10x3/uL (0.0-0.2); #Eosinophils 0.26 10x3/uL (0.0-0.7); #Monocytes 1.21 10x3/uL (0.11-0.59); #Neutrophils 6.08 10x3/uL (1.40-6.50); %Basophils 0.8 % (0.0-1.0); %Eosinophils 2.1 % (0.0-10.0); %Lymphocytes 35.9 % (21.0-51.0); %Monocytes 9.9 % (0.0-10.0); %Neutrophils 49.5 % (42.0-75.0); Hematocrit 46.5 % (42.0-52.0); Hemoglobin 14.0 g/dL (14.0-18.0); Mean Corpuscular Hemoglobin 24.8 pg (27.0-31.0); Mean Corpuscular Volume 82.3 fL (78.0-98.0); Platelet Count 406 10x3/uL (130-400); Red Blood Cell (RBC) Count 5.65 mill/uL (4.70-6.10); White Blood Cell (WBC) Count 12.28 10x3/uL (4.8-10.8)
[2025-09-26 05:13] LABS: Anion Gap 13 mmol/L (10-20); BUN (Urea Nitrogen) 18 mg/dL (8.4-25.7); CRP, High Sensitivity at Bryan 2.96 mg/dL (< or = 0.5); Calc. Creatinine Clearance 111 mL/min (70-130); Calcium 8.9 mg/dL (7.8-10.44); Carbon Dioxide 24 mmol/L (23-31); Chloride 109 mmol/L (98-107); Glucose 94 mg/dL (80-115); Potassium 4.2 mmol/L (3.5-5.1); Sodium 142 mmol/L (136-145)
[2025-09-27 04:16] LABS: #Basophils 0.10 10x3/uL (0.0-0.2); #Eosinophils 0.28 10x3/uL (0.0-0.7); #Monocytes 1.16 10x3/uL (0.11-0.59); #Neutrophils 4.87 10x3/uL (1.40-6.50); %Basophils 0.9 % (0.0-1.0); %Eosinophils 2.6 % (0.0-10.0); %Lymphocytes 37.5 % (21.0-51.0); %Monocytes 10.9 % (0.0-10.0); %Neutrophils 45.8 % (42.0-75.0); Hematocrit 44.3 % (42.0-52.0); Hemoglobin 13.6 g/dL (14.0-18.0); Mean Corpuscular Hemoglobin 25.2 pg (27.0-31.0); Mean Corpuscular Volume 82.0 fL (78.0-98.0); Platelet Count 385 10x3/uL (130-400); Red Blood Cell (RBC) Count 5.40 mill/uL (4.70-6.10); White Blood Cell (WBC) Count 10.64 10x3/uL (4.8-10.8)
[2025-09-27 04:40] LABS: Anion Gap 15 mmol/L (10-20); BUN (Urea Nitrogen) 20 mg/dL (8.4-25.7); CRP, High Sensitivity at Bryan 1.62 mg/dL (< or = 0.5); Calc. Creatinine Clearance 87 mL/min (70-130); Calcium 8.5 mg/dL (7.8-10.44); Carbon Dioxide 25 mmol/L (23-31); Chloride 109 mmol/L (98-107); Glucose 104 mg/dL (80-115); Potassium 4.3 mmol/L (3.5-5.1); Sodium 145 mmol/L (136-145)
[2025-09-27 10:52] VITALS: BP 170/86; TEMP 97.5
[2025-09-27] MEDS ORDERED: Amoxicillin/Potassium Clav 875 MG TAB PO SCH (21:00)
== END 2025-09-27 12:43 | disposition home or self-care (01) | DRG 872 ==
LOC: ERS 10:24 → MSONC 12:11 → OBSVTOIN 09-22 13:19 → 2NO 09-26 17:06
PROVIDERS: ADMIT Internal Medicine; ATTEND Student in an Organized Health Care Education/Training Program
PROC: 0J910ZZ Drainage of Face Subcutaneous Tissue and Fascia, Open Approach (ICD-10-PCS; principal; 2025-09-21)
PROC: 3E03329 Introduction of Other Anti-infective into Peripheral Vein, Percutaneous Approach (ICD-10-PCS; 2025-09-22)
PROC: 3E0234Z Introduction of Serum, Toxoid and Vaccine into Muscle, Percutaneous Approach (ICD-10-PCS; 2025-09-24)
DX: A41.9 Sepsis, unspecified organism (principal); K12.2 Cellulitis and abscess of mouth; J36 Peritonsillar abscess; I25.10 Atherosclerotic heart disease of native coronary artery without angina pectoris; I48.91 Unspecified atrial fibrillation; Z23 Encounter for immunization; E78.5 Hyperlipidemia, unspecified; E03.9 Hypothyroidism, unspecified; Z95.5 Presence of coronary angioplasty implant and graft; Z98.890 Other specified postprocedural states; Z91.040 Latex allergy status; Z79.899 Other long term (current) drug therapy; Z79.82 Long term (current) use of aspirin; R65.20 Severe sepsis without septic shock; K05.20 Aggressive periodontitis, unspecified
CPT/HCPCS: 36415; 70488; 70491; 80048; 80053; 83605; 85025; 86141; 87040; 93005; 93010; 96365; 96366; 96372; 96375; 96376; 99282; G0378; J0295; J0360; J0696; J1100; J1885; J2270; J2272; J2405; J2704; J2919; J3490; Q9967